=== PATIENT | male | born 1960 | race Caucasian/White ===

== ENCOUNTER 2025-04-10 08:13 | Outpatient (CLI) | payer MEDICARE, MEDICAID ==
[~2025-04-10 08:13] MED LIST: ALBU18HF2 PO; BUPR-480 PO; BUSP10TA3 PO; CARV-50 PO; CLON2TAB11 PO; DOCU-22 PO; GABA-1405 PO; HYDR-3972 PO; INSU100V13 SQ; LAMO200T10 PO; LANTUS SQ; LEVO-65 PO; LISI40TA20 PO; METF-438 PO; OMEP20TA43 PO; QUET25TA36 PO; QUET400T13 PO; SIMV-45 PO; TRAM50TA2 PO
[2025-04-10 08:38] LABS: MEAN PLATELET VOLUME 7.2 FL (7.4-10.4); RED CELL DISTRIBUTION WIDTH 13.4 % (11.5-14.5)
[2025-04-10 08:49] LABS: CREATININE 0.87 MG/DL (0.60-1.10); TOTAL CARBON DIOXIDE 29.3 MMOL/L (24-32); eGFR 88 ML/MIN
--- NOTE | 2025-04-10 09:30 | RADIOLOGY REPORT ---
INDICATION: UNSPECIFIED ABDOMINAL PAIN TECHNIQUE: Multiple real-time sonographic images of the right upper abdomen were obtained. COMPARISON: None FINDINGS: Evaluation is limited due to obscuration from bowel gas. The liver is increased and Coarsened in echogenicity. The liver measures 20 cm. No intrahepatic biliary ductal dilatation is noted. The gallbladder wall measures 0.3 cm and is unremarkable. Gallstones. The common duct measures 0.3 cm and is unremarkable. No pericholecystic fluid is noted. The right kidney measures 13 cm. No hydronephrosis. The pancreas is not well visualized due to obscuration from bowel gas. IMPRESSION: Coarsened liver echotexture with superimposed increased echogenicity suggestive of fatty metamorphosis. Hepatomegaly. 2. Cholelithiasis without sonographic evidence acute cholecystitis.
== END 2025-04-10 23:59 | disposition home or self-care (01) ==
LOC: RAD 08:13
PROVIDERS: ATTEND Family Medicine
DX: K80.20 Calculus of gallbladder without cholecystitis without obstruction (principal); R16.0 Hepatomegaly, not elsewhere classified; K74.60 Unspecified cirrhosis of liver; R10.9 Unspecified abdominal pain
CPT/HCPCS: 36415; 76700; 80053; 82103; 85025